=== PATIENT | female | born 1995 | race Caucasian/White ===

== ENCOUNTER 2016-08-02 02:16 | Emergency (ER) | payer OTHER ==
[~2016-08-02 02:16] MED LIST: FERRO-TIME325 MG PO; FERROUS SULFATE PO; LORTAB 5-325 M1 EACH PO; NO MEDICATIONS; PHENERGAN12.5 M1 PR; PRENATAL MULTI1 EAC3 PO; PRENATAL VITAMINS; UNISOM; UNISOM50 MG PO; VITAMIN B-6; VITAMIN B-625 MG PO; ZOFRAN ODT4 MG/UDTAB PO; ZOFRANODT SL
[2016-08-02 02:57] LABS: URINE SOURCE CLEAN CATCH
[2016-08-02 03:03] LABS: URINE APPEARANCE CLEAR; URINE BILIRUBIN NEG (NEG); URINE BLOOD NEG (NEG); URINE COLOR YELLOW; URINE GLUCOSE NEG (NORM); URINE KETONE NEG (NEG); URINE LEUKOCYTE ESTERASE NEG (NEG); URINE NITRATE NEG (NEG); URINE PH 5.5 (5-8); URINE PROTEIN NEG (NEG); URINE SPECIFIC GRAVITY >=1.030 (1.003-1.035); URINE UROBILINOGEN 0.2 MG/DL (NORM)
[2016-08-02 03:09] LABS: MICRO INDICATED? NO
[2016-08-05 12:42] LABS: CHLAMYDIA TRACH Not Detected (Not Detected); N GONOR Not Detected (Not Detected)
== END 2016-08-02 03:44 | disposition home or self-care (01) ==
LOC: SED 02:16
PROVIDERS: Emergency Medicine
DX: R10.2 Pelvic and perineal pain (principal); Z88.0 Allergy status to penicillin
CPT/HCPCS: 81003; 84703; 87210; 87491; 87591; 87808; 87905; 99283; 99284

== ENCOUNTER 2016-10-28 13:18 | Emergency (ER) | payer OTHER | END 2016-10-28 14:13 | disposition home or self-care (01) | LOC: SED 13:18 | DX: J02.9 Acute pharyngitis, unspecified (principal); F41.9 Anxiety disorder, unspecified; F17.200 Nicotine dependence, unspecified, uncomplicated | CPT/HCPCS: 99282 ==